=== PATIENT | female | born 1980 | race Caucasian/White ===

== ENCOUNTER 2017-01-22 05:23 | Emergency (ER) | payer BC ==
[~2017-01-22] VITALS: Ht 170.2 cm; Wt 123.8 kg
[~2017-01-22 05:23] MED LIST: AMOXICILLIN PO; AMOXICILLIN500 M1 PO; AMOXIL875 MG PO; BACTRIM DS TABL1 TA2 PO; BENTYL20 MG PO; CIPRO PO; KEFLEX500 M1 PO; MEDI-MECLIZINE25 M1 PO; PHENERGAN SUPP25 MG PR; PHENERGAN25 M1 PO; VICODIN 5/1 TAB 5/50 PO
[2017-01-22 06:53] LABS: URINE APPEARANCE CLEAR; URINE BILIRUBIN NEG (NEG); URINE BLOOD NEG (NEG); URINE COLOR YELLOW; URINE GLUCOSE NEG (NEG); URINE KETONE NEG (NEG); URINE LEUKOCYTE ESTERASE 2+ (NEG); URINE NITRATE NEG (NEG); URINE PH 5.5 (5-8); URINE PROTEIN NEG (NEG); URINE SPECIFIC GRAVITY 1.024 (1.003-1.035)
[2017-01-22 06:55] LABS: CULTURE INDICATED? YES; URINE BACTERIA AUWI NEG (NEGATIVE); URINE SQUAMOUS EPITHELIAL CELL MOD /[HPF]
[2017-01-22 07:15] LABS: URINE SOURCE CLEAN CATCH
[2017-01-22 07:18] LABS: URBCS1 AUWI 0-2 /[HPF] (0-2)
[2017-01-25 02:04] LABS: CHLAMYDIA TRACH Not Detected (Not Detected); N GONOR Not Detected (Not Detected)
== END 2017-01-22 07:08 | disposition home or self-care (01) ==
LOC: CED 05:23
PROVIDERS: Physician Assistant
DX: N89.8 Other specified noninflammatory disorders of vagina (principal); E78.00 Pure hypercholesterolemia, unspecified; F41.9 Anxiety disorder, unspecified; Z98.51 Tubal ligation status
CPT/HCPCS: 81003; 84703; 87086; 87491; 87591; 87808; 87905; 99284